=== PATIENT | female | born 1950 | race Caucasian/White ===

== ENCOUNTER 2018-08-07 10:25 | Emergency (ER) | payer MEDICARE, OTHER ==
[~2018-08-07] VITALS: Ht 152.4 cm; Wt 90.7 kg
[2018-08-07] MEDS ORDERED: OSLT75C PO (11:12)
[2018-08-07] MEDS ORDERED: CEPH-507 PO (11:12)
--- NOTE | 2018-08-07 11:12 | NUR ---
Unable to input patients medications. Patient does not remember names of what she takes but states she takes "a bunch" of medication.
--- NOTE | 2018-08-07 11:12 | ED Respiratory ---
General Chief Complaint: Cough/Cold/Flu Symptoms Stated Complaint: FEVER & RUNNY NOSE Nursing Triage Note: Has been taking care of her mother who was hospitalized for influenza. Started feeling sick two days ago with chills, cough, sore throat and runny nose. Has been taking dayquil to help with symptoms. Source: patient Exam Limitations: no limitations History of Present Illness Date Seen by Provider: Aug 07, 2018 Time Seen by Provider: 10:45 Initial Comments Patient is a 67-year-old female with history of Crohn's disease currently on Humira who presents with productive cough, sore throat and generalized malaise in body aches. Symptom onset was 24-48 hours ago. Patient has in caring for multiple sick family members intermittent diagnosed with influenza. Denies shortness of breath, wheezing or measured fever. Patient's take Over-the- counter cough medication with limited relief. No other acute symptoms or complaints. Timing/Duration: this morning, getting worse Prior Episodes/Possible Cause: no prior episodes Associated Symptoms: cough; No dizziness; fever/chills; No lightheadedness; muscle aches, nasal congestion, nasal drainage; No shortness of breath; sore throat Allergies and Home Medications Allergies Coded Allergies: Penicillins (Verified Allergy, Unknown, rash, 08/07/18) azathioprine (Verified Allergy, Unknown, liver failure, 08/07/18) Patient Home Medication List Home Medication List Reviewed: Yes Review of Systems Review of Systems Constitutional: see HPI EENTM: see HPI Respiratory: see HPI Cardiovascular: see HPI Genitourinary: see HPI Musculoskeletal: see HPI Skin: see HPI Psychiatric/Neurological: See HPI Hematologic/Lymphatic: See HPI Immunological/Allergic: see HPI Past Grsvjms-Ciomqy-Gmmuwx Hx Patient Social History Alcohol Use: Occasionally Uses Alcohol Beverage of Choice: Wine Recreational Drug Use: No Smoking Status: Never a Smoker 2nd Hand Smoke Exposure: No Recent Foreign Travel: No Contact w/Someone Who Travel: No Recent Infectious Disease Expo: No Physical Abuse: No Sexual Abuse: No Mistreated: No Past Medical History Surgeries: Yes (knee arthroscopy) Gallbladder, Orthopedic Cardiac: Yes Hypertension Gastrointestinal: Yes Crohns Disease Physical Exam Vital Signs - First Documented 08/07/18 10:40 Temp 98.9 Pulse 95 B/P (MAP) 153/54 (87) Pulse Ox 96 Capillary Refill : Less Than 3 Seconds Height: 5'" Weight: 200lbs. oz. [id number]; BMI Method:Stated General Appearance: WD/WN, no apparent distress Eyes: Bilateral Eye Normal Inspection, Bilateral Eye PERRL HEENT: PERRL/EOMI, TMs normal, pharyngeal erythema Neck: non-tender, full range of motion, supple Respiratory: chest non-tender, lungs clear Cardiovascular: regular rate, rhythm Gastrointestinal: normal bowel sounds, non tender Extremities: non-tender Neurologic/Psychiatric: normal mood/affect, oriented x 3 Skin: normal color Focused Exam Sepsis Stage: Ruled Out Progress/Results/Core Measures Suspected Sepsis Recent Fever Within 48 Hours: Yes Infection Criteria Present: Suspected New Infection New/Unexplained Altered Menta: No Sepsis Screen: Possible Sepsis Risk SIRS Temperature:98.9 Pulse: 95 Respiratory Rate: Blood Pressure 153 /54 Mean: 87 Results/Orders Vital Signs/I&O 08/07/18 10:40 Temp 98.9 Pulse 95 B/P (MAP) 153/54 (87) Pulse Ox 96 Capillary Refill : Less Than 3 Seconds Blood Pressure Mean: 87 Departure Impression Primary Impression: Influenza-like symptoms Disposition: 01 HOME, SELF-CARE Condition: Stable Transfer Time Spoke to Accepting Phy: 11:10 Departure-Patient Inst. Referrals: NO,LOCAL PHYSICIAN (PCP/Family) Primary Care Physician Patient Instructions: Flu, Acute Bronchitis, Adult (DC), Flu, Adult (DC) Add. Discharge Instructions: Please increase fluids, take Mucinex for cough and Tamiflu and antibiotics as directed. Stay home and rest. Follow-up with your PCP in 3-5 days for reevaluation if symptoms persist. Return to the ED if new or worsening symptoms. All discharge instructions reviewed with patient and/or family. Voiced understanding. Scripts Cephalexin (Keflex) 500 Mg Capsule 500 MG PO TID, #30 CAP Prov: MARCE BENITO DO 08/07/18 Oseltamivir Phosphate (Tamiflu) 75 Mg Cap 75 MG PO BID for 5 Days, CAP Prov: MARCE BENITO DO 08/07/18 MARCE BENITO DO Aug 07, 2018 11:12
[2018-08-07 11:20] VITALS: BP 111/72
== END 2018-08-07 11:22 | disposition home or self-care (01) ==
LOC: ER FS 10:30
DX: J02.9 Acute pharyngitis, unspecified (principal); R53.81 Other malaise; R52 Pain, unspecified; I10 Essential (primary) hypertension; Z88.0 Allergy status to penicillin; Z88.8 Allergy status to other drugs, medicaments and biological substances; Z87.19 Personal history of other diseases of the digestive system; Z98.890 Other specified postprocedural states
CPT/HCPCS: 99282